=== PATIENT | female | born 1960 ===

== ENCOUNTER 2018-08-10 16:09 | Outpatient (REF) | payer MEDICAID, SELFPAY ==
[2018-08-10 22:11] LABS: Cholesterol 209 mg/dL (50-200); HDL Cholesterol 60 mg/dL (40-60); LDL CHOLESTEROL 124 mg/dL (<100); Triglyceride 80 mg/dL (30-150)
== END 2018-08-10 16:29 ==
LOC: NCHCN 16:09
PROVIDERS: PCP Family Medicine; Visit Provider Registered Nurse
DX: Z13.220 Encounter for screening for lipoid disorders (principal); Z00.00 Encounter for general adult medical examination without abnormal findings
CPT/HCPCS: 80061; 83721

== ENCOUNTER 2023-12-13 01:51 | Outpatient (CLI) | payer BC, SELFPAY ==
--- NOTE | 2023-12-13 | ETT_ITS ---
APPROVED REPORT Exam: Exercise Treadmill Patient Location: Out-Patient Room/Bed: Stress Nurse: Azalia Page RN Ordering Provider:SPENCER IVY, Contact Number: [phone] BMI: 18.53 Baseline Rhythm: Sinus Rhythm Indications: chest pain Medical History Medical History: skin cancer Cardiac Medications: aspirin, atorvastatin, metoprolol XL, nitroglycerin Allergies: penicillin Cardiac Risk Factors: family hx Previous Cardiac Procedures: none Pretest Chest Pain Characteristics: No chest pain Exercise History: Physically active Physical Disabilities: none Lung Sounds: Clear to auscultation Heart Sounds: Regular Stress Test Details Test: Exercise stress testing was performed using a Garo protocol. Rest Stress HR Resting HR Supine: 70 bpm Max Heart Rate (APMHR): 156 bpm Resting HR Standin bpm Target HR (85% APMHR): 133 bpm Max HR Achieved: 190 bpm % of APMHR: 122 Recovery HR: 88 bpm HR response to stress: Accelerated HR response to stress BP Resting BP Supine: 124/72 mmHg Resting BP Standin/78 mmHg Max BP: 160/78 mmHg Recovery BP: 126/78 mmHg BP response to stress: Normal blood pressure response to stress. ECG Resting ECG: Sinus Rhythm Ectopy: none Comment: minimal ST depression, <1mm Stress ECG: Sinus Tachycardia, ?SVT, ?aberrant rhythm ST Change: Horizontal ST depression, Downsloping ST depression Lead(s): diffuse Stage: 2, 3, recovery Maximum ST Deviation: 1-4 mm Arrhythmia: ?SVT, ?aberrant rhythm Recovery ECG: Sinus Rhythm Recovery ST Change: Downsloping ST depression, Horizontal ST depression Lead(s): diffuse Recovery ST Deviation: 1-4 mm Recovery Arrhythmia: None Comment: ST depression back to baseline at test end Clinical Reason for Termination: Target HR Achieved, arrhythmia Stress Symptoms: none Exercise duration: 08 min52 sec Highest Stage Reached: Stage 3: 3.4 mph at 14% grade. Exercise capacity: 10.16 METs Angina Score: None Sarkar Treadmill Score: 7.0 Rate Pressure Product: 81070 Stress ECG Conclusion 1. Resting electrocardiogram showed minor nondiagnostic ST abnormalities 2. Patient exercised on the Garo protocol and completed workload of 10.16 METS 3. Normal heart rate and blood pressure response to exercise. Patient had no symptoms to suggest ang barber 4. At peak exercise there was [address] depression in the inferior and anterolateral leads. Patient al so developed supraventricular tachycardia at peak exercise with heart rate of 190, more prominent ST depression. SVT was asymptomatic 5. Electrocardiographically the test was consistent with myocardial ischemia Sarkar Treadmill Score is 7.0 which is Low risk. Stress Test Summary STAGE Time (mins) Speed (mph) Grade (%) HR BP SpO2 SYMPTOMS METS Supine 70 124/72 Standing 83 126/78 1 3 1.7 10 101 138/70 96 4.5 2 6 2.5 12 122 148/64 7 3 9 3.4 14 167 10 1 min recovery 97 160/78 3 min recovery 86 142/76 6 min recovery 85 126/78 Patient noted to have minimal ST depressions at rest. During Stages 2 and 3, patient noted to have 1- 4mm ST depression horizontal and downsloping. At end of stage 3, patient's HR up to 190, ?SVT/aberran t rhythm. Discontinued test and patient assisted to stretcher, denied any symptoms. Rhythm returned t o sinus tachycardia. At recovery, patient noted to have 1-4mm ST depression horizontal and downslopin g. Heart rate quickly returned to baseline. Dr. Mahan notified and viewed EKGs, ok for patient to [facility]. ST depression back to baseline. Left ambulatory in no apparent distress.
== END 2023-12-13 02:11 ==
PROVIDERS: PCP Family Medicine; Visit Provider Family Medicine
DX: R07.9 Chest pain, unspecified (principal)
CPT/HCPCS: 93017

== ENCOUNTER 2025-02-12 14:07 | Observation (INO) | payer MEDICARE, SELFPAY ==
--- NOTE | 2025-02-12 14:00 | RT.EKG_ITS ---
APPROVED REPORT Exam: Resting ECG Reason for Exam: chest pain Patient Location: E HR:83 bpm ECG Measurements Heart Rate 83 AXIS LA 156 P 51 QRSd 78 QRS 49 QT 333 T -67 QTc 391 Conclusion Sinus rhythm...normal P axis, V-rate 60- 99 Consider anteroseptal infarct...Q >30mS, dimin R, V1-V2 Nonspecific repol abnormality, diffuse leads...ST dep, T flat/neg, ant/lat/inf No Occlusion GA
--- NOTE | 2025-02-12 14:09 | W.ED.GENAD ---
Discharge Plan Disposition Patient Disposition: Admit to [facility] Discharge Details Clinical Impression: Unstable angina Primary Care Provider: Sin Martinez ED Provider: Ash Trevino [facility] General Date/Time Provider Initiated Documentation: 02/12/25 14:09. [facility] Narrative: MDM This is an overall very well-appearing normothermic and not tachycardic 64-year-old female with concerning chest pain for which she received aspirin and will trial nitroglycerin in the setting of her ECG with ST segment depressions. No tearing quality to suggest aortic dissection so we will defer angiogram. No shortness of breath to suggest PE so I did not order D-dimer. No rash to chest to suggest zoster. No history of recent emesis to suggest increased risk for esophageal rupture. No fevers nor cough to suggest pneumonia. Patient is not a dialysis patient nor she tachycardic so my suspicion is low for tamponade. No significant pericardial effusion to suggest tamponade. Equal breath sounds and no trauma so doubt pneumothorax. 3:45 PM Reassuring initial troponin. Portable chest x-ray on my preliminary read with no acute cardiopulmonary process. Very mild hypokalemia. No LINDA. No LFT abnormalities. Normal reassuring magnesium. CBC lacks anemia thrombocytopenia and leukocytosis. Patient's chest pain had resolved and she did not receive nitroglycerin. 4:20 PM I spoke [place] Dave Rg [place] [facility] [place] advised [place] hospitalization with heparinization for unstable angina. He accepted the patient for transfer tomorrow on behalf of Dr. Morejon. He advised deferring clopidogrel load at this point in time but considering load if patient develop chest pain or made troponin. If patient developed chest pain he advised 600 mg clopidogrel load. I updated patient on plan of care. 4:50 PM I was in touch with Dr. Jean who graciously agreed to accept the patient for hospitalization.I signed patient out to Arabella. I have asked Arabella to engage with care management as patient has significant financial concerns over her hospitalization. Diagnostic interpretations performed by me: Per my independent interpretation chest x-ray shows: Per my independent interpretation EKG shows: Narrow complex sinus rhythm at a rate of 83. Normal axis. Intervals within normal limits. Diffuse ST segment depressions leads II, aVF, and V3. T wave flattening in aVL. No prior for comparison. ]Medications: Aspirin nitroglycerin HPI This is a patient with a history of chronic vomiting syndrome presenting with chest pain. The patient reports experiencing chest pain upon awakening at 8:00 AM. She describes the pain as a classic, intense discomfort radiating across her chest and back. She has had a similar episode approximately 1.5 years ago, during which she was advised to consult a athletic monitor but did not follow through due to relocation. She sought medical attention at [facility] 3 to 4 days after the initial episode, where she underwent a stress test that revealed abnormalities. A subsequent consultation in [place] resulted in a prescription for statins, which she chose not to take. She was also prescribed nitroglycerin tablets, one of which she took this morning with positive effect. Currently, she reports a persistent ache in the middle of her chest, extending under her armpit and around her left arm. She reports no recent trauma to her chest or falls but mentions owning a large dog that has caused significant injuries, including probable rib fractures, over the past 3 years. She reports no respiratory distress or shortness of breath. She has no history of thromboembolic events in her legs or lungs. She reports no rashes on her chest. She reports no dysuria. The patient has a diagnosis of chronic vomiting syndrome, with episodes occurring approximately 4 times a year, for which she takes Zofran as needed. 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 She recently recovered from a cold that resulted in an earache last week. Exam General: Well-appearing in no acute distress speaking in complete sentences. Head: Normocephalic, atraumatic. Eye: Extraocular eye movements intact. No conjunctival injection. No scleral icterus. Ear, nose, mouth, throat: Grossly normal inspection. Normal voice, handling secretions normally. Neck: Trachea midline. Cardiovascular: Well-perfused distal extremities. Regular rate and rhythm. Respiratory: Nonlabored respiration. Clear lungs bilaterally. Gastrointestinal: Nondistended abdomen. Musculoskeletal: No significant lower extremity pitting edema. Moving all 4 extremities spontaneously. Skin: Normal for age and race, grossly normal temperature and turgor. No acute rash. Neurologic: Alert and appropriate, no apparent acute deficits. Psychiatric: Mood and manner are appropriate. Grooming and personal hygiene are appropriate. Related Data Allergies Allergy/AdvReac Type Severity Reaction Status Date / Time Penicillins Allergy Severe Hives Unverified 02/12/25 14:15 PFSH All Active Problems (Updated 02/12/25 @ 16:37 by Ash Tervino MD) Unstable angina (Acute) Social History Smoking/Tobacco Use Status: Never Smoking risk assessment performed?: Yes Alcohol Intake: current Alcohol Intake frequency: 0-2 drinks per day Alcohol type: wine Substance use type: does not use Housing: house Do you feel safe at home: Yes Do you feel safe in your relationship?: Yes POCUS Exam (ED) Limited Cardiac Exam DATE OF EXAM: 02/12/25 TIME OF EXAM: 15:48 PROVIDER THAT PERFORMED THE STUDY: Ash Trevino IS THIS A REPEAT EXAM DURING THIS ENCOUNTER: no REASON FOR EXAM: Chest pain VISUALIZED STRUCTURES: Four Chambers, Left ventricle and LVOT VIEW OBTAINED: Apical 4-Chamber, Parasternal long-axis and Subxiphoid PERTINENT FINDINGS/IMPRESSION: No pericardial effusion and No RV dilation DIFFERENTIAL DIAGNOSES: Aortic outflow track less than 4 cm, good squeeze, RV less than LV, no significant pericardial effusion. Exam complete
[2025-02-12 14:14] VITALS: BP 158/96; PULSE 88; RESP 20; TEMP 36.6; O2SAT 98
[2025-02-12 14:42] LABS: Abs Immature Grans 0.01 10^3/uL (0.0-0.06); HCT 39.0 % (36.0-46.0); HGB 12.7 g/dL (11.2-15.7); Immature Grans % 0.2 %; MCH 31.0 pg (27.0-33.0); MCHC 32.6 % (32.0-36.0); MCV 95 fL (80-95); MPV 8.3 fL (8.0-11.0); Platelet Count 288 10^3/uL (130-400); RBC 4.10 10^6/uL (3.93-5.22); RDW 12.6 % (11.7-14.6); RDW-SD 44.1 fL; WBC 4.73 10^3/uL (4.4-10.8)
[2025-02-12 14:53] VITALS: RESP 16
[2025-02-12] MEDS: Normal Saline 500 ML IV (14:58)
[2025-02-12] MEDS: Aspirin 81 MG CHEW 324 MG CH (14:58)
[2025-02-12 15:04] LABS: ALT 55 U/L (14-59); AST 34 U/L (15-37); Albumin 4.2 g/dL (3.4-5.0); Alkaline Phosphatase 64 U/L (46-116); Anion Gap 9.8 mmol/L (3-11); BUN 12 mg/dL (7-18); Bilirubin, Total 0.4 mg/dL (0.2-1.0); CO2 28.2 mmol/L (21.0-32.0); Calcium 8.9 mg/dL (8.5-10.1); Chloride 105 mmol/L (98-107); Glucose 94 mg/dL (74-106); Magnesium 2.2 mg/dL (1.8-2.4); Potassium 3.4 mmol/L (3.5-5.1); Sodium 143 mmol/L (136-145); Total Protein 7.3 g/dL (6.4-8.2); Troponin I 4 ng/L (<or=51)
--- NOTE | 2025-02-12 15:43 | DI.RAD_ITS ---
Exam(s) XR PORTABLE CHEST AP EXAM: XR PORTABLE CHEST AP CLINICAL HISTORY: Chest pain TECHNIQUE: 2D digital imaging was performed of the chest. One image was obtained. An AP view was obtained. COMPARISON: No exams were available for comparison FINDINGS: MEDIASTINUM: Normal. HEART: Normal. PULMONARY VASCULATURE: Normal. LUNGS: Clear. PLEURAL SPACE: No pleural effusion or pneumothorax. BONE:Within normal limits for the patient's age. OTHER FINDINGS:Normal. IMPRESSION: No acute pulmonary findings. DATA REPOSITORY: RADIATION DOSE DELIVERED:
[2025-02-12 16:09] LABS: Troponin I 4 ng/L (<or=51)
--- NOTE | 2025-02-12 16:56 | HPE_ITS ---
Date of service: 02/12/25 Time of Service: 16:57 Assessment and Plan Assessment and plan (1) Unstable angina: Status: Acute Assessment and plan: discussed with cardiology and has been accepted in transfer. no bed available tonight so will be held on med/surg on telemetry accepting Dr Morejon continue heparin drip no plavix unless chest pain re-occurs received asa chest pain free. no acute ischemic EKG changes. cycle troponin which has been negative x2 NPO after midnight. discussed with DR Jean History of Present Illness History of Present Illness Chief Complaint: chest pain Narrative: This is a 64-year-old female past medical history of chest pain, abnormal stress test, hyperlipidemia not treated, who developed chest pain that did wake her up today at approximately 8 AM. She states the pain did radiate across her chest into her back. She reports she had a similar episode to this approximately a year and a half ago. She did undergo a stress test at that time which did show abnormalities. She did have subsequent follow-up with a provider who did prescribe her statin which she did not take. She was also given nitroglycerin prescription which she did take 1 nitroglycerin this morning that did resolve her chest pain. She denies any recent illness. She has had no shortness of breath edema nausea or vomiting. Her workup in the emergency department showed reassuring labs and a nonischemic EKG. Her case was discussed with cardiology at [facility] who did advise treatment for unstable angina with heparin drip. They did state to hold off on Plavix unless her chest pain reoccurs. She has been accepted in transfer under Dr. Morejon but will stay here until a bed becomes available. She has been hemodynamically stable and chest pain-free while being monitored in the emergency department. She is being admitted to the hospitalist services on telemetry Review of Systems All systems reviewed & are unremarkable except as noted in HPI and below PFSH All Active Problems (Updated 02/12/25 @ 16:37 by Ash Trevino MD) Unstable angina (Acute) Social History Smoking/Tobacco Use Status: Never Smoking risk assessment performed?: Yes Alcohol Intake: current Alcohol Intake frequency: 0-2 drinks per day Alcohol type: wine Substance use type: does not use Housing: house Do you feel safe at home: Yes Do you feel safe in your relationship?: Yes Meds Allergies and Home Medications Allergies Allergy/AdvReac Type Severity Reaction Status Date / Time Penicillins Allergy Severe Hives Unverified 02/12/25 14:15 Exam Narrative Exam Narrative: Well-appearing female stated age no acute distress head is atraumatic eyes nonicteric noninjected oral mucosas moist neck is supple full range of motion cardiovascular regular rate and rhythm no murmurs respirations even and unlabored abdomen benign moves all extremities no peripheral edema neurologic awake alert oriented no focal deficits psychiatric appropriate mood and affect Results Labs 02/12/25 14:31 02/12/25 14:31 Labs: Laboratory Results - last 24 hr 02/12/25 02/12/25 14:31 15:44 WBC 4.73 RBC 4.10 Hgb 12.7 Hct 39.0 MCV 95 MCH 31.0 MCHC 32.6 RDW 12.6 Plt Count 288 MPV 8.3 Immature Gran % 0.2 Neutrophils % 58.9 Lymphocytes % 30.2 Monocytes % 8.2 Eosinophils % 1.7 Basophils % 0.8 Nucleated RBC % 0.0 Absolute Neutrophils 2.78 Absolute Lymphocytes 1.43 Absolute Monocytes 0.39 Absolute Eosinophils 0.08 Absolute Basophils 0.04 Sodium 143 Potassium 3.4 L Chloride 105 Carbon Dioxide 28.2 Anion Gap 9.8 BUN 12 Creatinine 0.6 Est GFR (CKD-EPI 2020) 99.55 Glucose 94 Calcium 8.9 Magnesium 2.2 Total Bilirubin 0.4 AST 34 ALT 55 Alkaline Phosphatase 64 Troponin I 4 4 Total Protein 7.3 Albumin 4.2 Last Vital Signs Temp 36.6 C 02/12/25 14:14 Pulse 88 02/12/25 14:14 Resp 16 02/12/25 14:53 BP 158/96 H 02/12/25 14:14 Pulse Ox 98 02/12/25 14:14 PAWSS Have you Been Recently Intoxicated or Drunk Within the Last 30 days?: No Have you Ever Experienced Previous Episodes of Alcohol Withdrawal?: No Have you ever Experienced Withdrawal Seizures?: No Have you ever Experienced Delirium Tremens(DT)s?: No Have you ever undergone Alcohol Rehabilitation Treatment (i.e, inpt ot outpatient treatment programs)?: No Have you ever Experienced Blackouts?: No Have you ever Combined Alcohol with other Downers within the last 90 days?: No Positive Blood Alcohol level on Presentation? [PCS.BAL]: No Result: 0 Time Spent Time spent with Patient: 55-74 minutes Time was spent: preparing to see the patient(eg.review tests), obtaining and/or reviewing separately otained hiistory, ordering medications,tests, procedures, indepentently interpreting results and counseling the patient
[2025-02-12 17:36] LABS: Lab Add On Test DONE
[2025-02-12 17:50] LABS: Cholesterol 235 mg/dL (<200); HDL Cholesterol 66 mg/dL (>or=50)
[2025-02-12 17:51] LABS: Hemoglobin A1C 5.5 % (<5.7)
[2025-02-12] MEDS: Heparin in 0.45% NaCl 25,000 UNIT/250 ML BAG 6.5 UNIT IVINF (18:10)
[2025-02-12 18:21] LABS: PTT Activated 26.7 sec (20.6-30.2)
[2025-02-12 18:40] LABS: PTT Activated 25.4 sec (20.6-30.2)
[2025-02-12 19:15] VITALS: BP 148/92; PULSE 69; RESP 18; TEMP 36.9; O2SAT 100
--- NOTE | 2025-02-12 19:21 | W.PC.ACHO ---
Registration Status: ADM NATALY Primary Language: Preferred Language: Welsh ED Information & Data Chief Complaint Chest Pain 02/12/25 14:53 Chief Complaint Chest Pain 02/12/25 14:14 Triage Note pt was wokejn up by CP this 02/12/25 14:14 am, radiating to arm. no cardiac hx. Most Recent Vital Signs Temperature 36.9 C 02/12/25 19:15 Temperature Source Temporal Artery Scan 02/12/25 19:15 Pulse 69 02/12/25 19:15 Respiratory Rate 18 02/12/25 19:15 Respiratory Effort Normal, Non-Labored 02/12/25 14:53 Respiratory Depth Normal 02/12/25 14:53 Respiratory Pattern Normal 02/12/25 14:53 Blood Pressure 148/92 H 02/12/25 19:15 Blood Pressure Mean 110 02/12/25 19:15 Pulse Oximetry 100 02/12/25 19:15 Oxygen Delivery Method Room Air 02/12/25 19:15 Oxygen Flow Rate 0 02/12/25 19:15 Pain Level 2 02/12/25 14:14 Allergies Penicillins Allergy (Severe, Unverified 02/12/25 14:15) Hives Precautions Isolation Standard precaution 02/12/25 14:53 Active Medications Generic Name Dose Route Start Last Admin Trade Name Freq PRN Reason Stop Dose Admin Heparin Sodium/Sodium Chloride 25,000 unit in 250 mls @ 6.5 mls/hr 02/12/25 16:30 02/12/25 18:10 IVINF 650 units/hr INFUSION FARHAD 6.5 mls/hr Protocol Administration 650 UNITS/HR IV IV Catheter Type [Left Saline Lock Antecubital] IV Catheter Gauge [Left 18 Antecubital] Diagnostics 02/12/25 02/12/25 02/12/25 Range/Units Unknown 19:51 18:14 WBC (4.4-10.8) 10^3/uL RBC (3.93-5.22) 10^6/uL Hgb (11.2-15.7) g/dL Hct (36.0-46.0) % MCV (80-95) fL MCH (27.0-33.0) pg MCHC (32.0-36.0) % RDW (11.7-14.6) % Plt Count (130-400) 10^3/uL MPV (8.0-11.0) fL Immature Gran % % Neutrophils % % Lymphocytes % % Monocytes % % Eosinophils % % Basophils % % Nucleated RBC % (0.0-0.3) % Absolute Neutrophils (1.2-6.7) 10^3/uL Absolute Lymphocytes (1.2-3.4) 10^3/uL Absolute Monocytes (0.1-0.8) 10^3/uL Absolute Eosinophils (0.0-0.7) 10^3/uL Absolute Basophils (0.0-0.2) 10^3/uL APTT 25.4 (20.6-30.2) sec Sodium (136-145) mmol/L Potassium (3.5-5.1) mmol/L Chloride (98-107) mmol/L Carbon Dioxide (21.0-32.0) mmol/L Anion Gap (3-11) mmol/L BUN (7-18) mg/dL Creatinine (0.55-1.02) mg/dL Est GFR (CKD-EPI 2020) (mL/min/1.73m2) Glucose (74-106) mg/dL Hemoglobin A1c (<5.7) % Calcium (8.5-10.1) mg/dL Magnesium (1.8-2.4) mg/dL Total Bilirubin (0.2-1.0) mg/dL AST (15-37) U/L ALT (14-59) U/L Alkaline Phosphatase (46-116) U/L Troponin I Pending (<or=51) ng/L Total Protein (6.4-8.2) g/dL Albumin (3.4-5.0) g/dL Triglycerides (<150) mg/dL Total Cholesterol (<200) mg/dL LDL Cholesterol, Calc (<100) mg/dL HDL Cholesterol (>or=50) mg/dL B. divergens/MO-1 PCR Babesia duncani (PCR) Babesia microti DNA PCR Lyme Disease Antibody E.chaffeensis DNA (PCR) E.ewingii/canis DNA PCR E.muris eauclairensis (PCR) A. phagocytophilum (PCR) Blood B. miyamotoi (PCR) Add-On Test Request DONE 02/12/25 02/12/25 02/12/25 Range/Units 17:15 16:51 15:44 WBC (4.4-10.8) 10^3/uL RBC (3.93-5.22) 10^6/uL Hgb (11.2-15.7) g/dL Hct (36.0-46.0) % MCV (80-95) fL MCH (27.0-33.0) pg MCHC (32.0-36.0) % RDW (11.7-14.6) % Plt Count (130-400) 10^3/uL MPV (8.0-11.0) fL Immature Gran % % Neutrophils % % Lymphocytes % % Monocytes % % Eosinophils % % Basophils % % Nucleated RBC % (0.0-0.3) % Absolute Neutrophils (1.2-6.7) 10^3/uL Absolute Lymphocytes (1.2-3.4) 10^3/uL Absolute Monocytes (0.1-0.8) 10^3/uL Absolute Eosinophils (0.0-0.7) 10^3/uL Absolute Basophils (0.0-0.2) 10^3/uL APTT (20.6-30.2) sec Sodium (136-145) mmol/L Potassium (3.5-5.1) mmol/L Chloride (98-107) mmol/L Carbon Dioxide (21.0-32.0) mmol/L Anion Gap (3-11) mmol/L BUN (7-18) mg/dL Creatinine (0.55-1.02) mg/dL Est GFR (CKD-EPI 2020) (mL/min/1.73m2) Glucose (74-106) mg/dL Hemoglobin A1c (<5.7) % Calcium (8.5-10.1) mg/dL Magnesium (1.8-2.4) mg/dL Total Bilirubin (0.2-1.0) mg/dL AST (15-37) U/L ALT (14-59) U/L Alkaline Phosphatase (46-116) U/L Troponin I Pending Pending 4 (<or=51) ng/L Total Protein (6.4-8.2) g/dL Albumin (3.4-5.0) g/dL Triglycerides (<150) mg/dL Total Cholesterol (<200) mg/dL LDL Cholesterol, Calc (<100) mg/dL HDL Cholesterol (>or=50) mg/dL B. divergens/MO-1 PCR Babesia duncani (PCR) Babesia microti DNA PCR Lyme Disease Antibody E.chaffeensis DNA (PCR) E.ewingii/canis DNA PCR E.muris eauclairensis (PCR) A. phagocytophilum (PCR) Blood B. miyamotoi (PCR) Add-On Test Request 02/12/25 Range/Units 14:31 WBC 4.73 (4.4-10.8) 10^3/uL RBC 4.10 (3.93-5.22) 10^6/uL Hgb 12.7 (11.2-15.7) g/dL Hct 39.0 (36.0-46.0) % MCV 95 (80-95) fL MCH 31.0 (27.0-33.0) pg MCHC 32.6 (32.0-36.0) % RDW 12.6 (11.7-14.6) % Plt Count 288 (130-400) 10^3/uL MPV 8.3 (8.0-11.0) fL Immature Gran % 0.2 % Neutrophils % 58.9 % Lymphocytes % 30.2 % Monocytes % 8.2 % Eosinophils % 1.7 % Basophils % 0.8 % Nucleated RBC % 0.0 (0.0-0.3) % Absolute Neutrophils 2.78 (1.2-6.7) 10^3/uL Absolute Lymphocytes 1.43 (1.2-3.4) 10^3/uL Absolute Monocytes 0.39 (0.1-0.8) 10^3/uL Absolute Eosinophils 0.08 (0.0-0.7) 10^3/uL Absolute Basophils 0.04 (0.0-0.2) 10^3/uL APTT 26.7 (20.6-30.2) sec Sodium 143 (136-145) mmol/L Potassium 3.4 L (3.5-5.1) mmol/L Chloride 105 (98-107) mmol/L Carbon Dioxide 28.2 (21.0-32.0) mmol/L Anion Gap 9.8 (3-11) mmol/L BUN 12 (7-18) mg/dL Creatinine 0.6 (0.55-1.02) mg/dL Est GFR (CKD-EPI 2020) 99.55 (mL/min/1.73m2) Glucose 94 (74-106) mg/dL Hemoglobin A1c 5.5 (<5.7) % Calcium 8.9 (8.5-10.1) mg/dL Magnesium 2.2 (1.8-2.4) mg/dL Total Bilirubin 0.4 (0.2-1.0) mg/dL AST 34 (15-37) U/L ALT 55 (14-59) U/L Alkaline Phosphatase 64 (46-116) U/L Troponin I 4 (<or=51) ng/L Total Protein 7.3 (6.4-8.2) g/dL Albumin 4.2 (3.4-5.0) g/dL Triglycerides 119 (<150) mg/dL Total Cholesterol 235 H (<200) mg/dL LDL Cholesterol, Calc 146 H (<100) mg/dL HDL Cholesterol 66 (>or=50) mg/dL B. divergens/MO-1 PCR Pending Babesia duncani (PCR) Pending Babesia microti DNA PCR Pending Lyme Disease Antibody Pending E.chaffeensis DNA (PCR) Pending E.ewingii/canis DNA PCR Pending E.muris eauclairensis (PCR) Pending A. phagocytophilum (PCR) Pending Blood B. miyamotoi (PCR) Pending Add-On Test Request Intake and Output - 24 Hour Total 02/12/25 14:07 thru 02/12/25 14:58 Intake Total 10 Balance 10 Weight 50.802 kg Intake: IV 10 Falls Risk Assessment History of Falls No History 02/12/25 14:53 Fall Total Score 0 02/12/25 14:53 Level of Risk Standard/Low Risk 02/12/25 14:53 Problems (Updated 02/12/25 @ 16:37 by Ash Trevino MD) Unstable angina (Acute) v v v v v v v v v Sending and/or Receiving Nurses: Please use comment section below to note any information pertinent to the patient hand-off not included above. Information / Comments: pt arrived to the unit @1905. Heparin infusion running at 650ml/hr. on RA. no complaints of chest pain. Report received from: Rain in ED @3650.
[2025-02-12 20:33] LABS: Troponin I 5 ng/L (<or=51)
--- NOTE | 2025-02-12 21:25 | W.PM.DS.N ---
Date of service: 02/12/25 Time of Service: 21:25 DS: Diagnosis Discharge Diagnosis (1) Unstable angina: Status: Acute Discharge Plan Disposition Patient Disposition: Transfer-Acute Inpatient Care Specific Acute Inpt Facility: [facility] Condition: Stable Discharge Details Reason For Visit: chest pain, unstable angina Admit Date/Time: 02/12/25 16:56 Admit Provider: Rodolfo Jean Attending Provider: Rodolfo Jean Primary Care Provider: Sin Martinez Hospital Course Hospital Course: PT was accepted to [facility] at 2120 This is a 64-year-old female past medical history of chest pain, abnormal stress test, hyperlipidemia not treated, who developed chest pain that did wake her up today at approximately 8 AM. She states the pain did radiate across her chest into her back. She reports she had a similar episode to this approximately a year and a half ago. She did undergo a stress test at that time which did show abnormalities. She did have subsequent follow-up with a provider who did prescribe her statin which she did not take. She was also given nitroglycerin prescription which she did take 1 nitroglycerin this morning that did resolve her chest pain. She denies any recent illness. She has had no shortness of breath edema nausea or vomiting. Her workup in the emergency department showed reassuring labs and a nonischemic EKG. Her case was discussed with cardiology at [facility] who did advise treatment for unstable angina with heparin drip. They did state to hold off on Plavix unless her chest pain reoccurs. She has been accepted in transfer under Dr. Morejon but will stay here until a bed becomes available. She has been hemodynamically stable and chest pain-free while being monitored in the emergency department. She is being admitted to the hospitalist services on telemetry Assessment and plan (1) Unstable angina: Status: Acute Assessment and plan: discussed with cardiology and has been accepted in transfer. no bed available tonight so will be held on med/surg on telemetry accepting Dr Morejon continue heparin drip no plavix unless chest pain re-occurs received asa chest pain free. no acute ischemic EKG changes. cycle troponin which has been negative x2 NPO after midnight. Discharge Instructions Activity:: bed rest Equipment/Supplies:: No Equipment Needed Diet:: As Tolerated Discharge Orders Discharge Orders: Discharge Order (Routine); Ordered 02/12/25 Ordered By: Rafita Edwards DS: Summary Time Spent with Patient providing and/or coordinating discharge services: Less than 30 minutes Status at Discharge Functional status at discharge: bed bound Overall status at discharge: patient is not back to baseline Mental Status: mental status grossly normal Speech and Movement: speech and movement normal Mood: congruent mood Affect: normal affect Exam Narrative Exam Narrative: heent ncat mmm eomi perrla neck no lad cv rrr no mrg lungs ctab no amu [id number] Psych Mental Status: mental status grossly normal Speech and Movement: speech and movement normal Mood: congruent mood Affect: normal affect DS: Data Vitals/I&O Vitals and I&O: Vital Signs Temperature 36.9 C 02/12/25 19:15 Temperature Source Temporal Artery Scan 02/12/25 19:15 Pulse 69 02/12/25 19:15 Respiratory Rate 18 02/12/25 19:15 Respiratory Effort Normal, Non-Labored 02/12/25 14:53 Respiratory Depth Normal 02/12/25 14:53 Respiratory Pattern Normal 02/12/25 14:53 Blood Pressure 148/92 H 02/12/25 19:15 Blood Pressure Mean 110 02/12/25 19:15 Pulse Oximetry 100 02/12/25 19:15 Oxygen Delivery Method Room Air 02/12/25 19:15 Oxygen Flow Rate 0 02/12/25 19:15 Pain Level 2 02/12/25 14:14 Intake & Output 02/11/25 02/12/25 02/12/25 23:59 11:59 23:59 Intake Total Balance Weight 52.6 kg Intake: IV Data Completed and Pending Pending Labs at Discharge: 02/12/25 02/12/25 02/12/25 14:31 15:44 16:51 WBC 4.73 RBC 4.10 Hgb 12.7 Hct 39.0 MCV 95 MCH 31.0 MCHC 32.6 RDW 12.6 Plt Count 288 MPV 8.3 Immature Gran % 0.2 Neutrophils % 58.9 Lymphocytes % 30.2 Monocytes % 8.2 Eosinophils % 1.7 Basophils % 0.8 Nucleated RBC % 0.0 Absolute Neutrophils 2.78 Absolute Lymphocytes 1.43 Absolute Monocytes 0.39 Absolute Eosinophils 0.08 Absolute Basophils 0.04 APTT 26.7 Sodium 143 Potassium 3.4 L Chloride 105 Carbon Dioxide 28.2 Anion Gap 9.8 BUN 12 Creatinine 0.6 Est GFR (CKD-EPI 2020) 99.55 Glucose 94 Hemoglobin A1c 5.5 Calcium 8.9 Magnesium 2.2 Total Bilirubin 0.4 AST 34 ALT 55 Alkaline Phosphatase 64 Troponin I 4 4 Cancelled Total Protein 7.3 Albumin 4.2 Triglycerides 119 Total Cholesterol 235 H LDL Cholesterol, Calc 146 H HDL Cholesterol 66 B. divergens/MO-1 PCR Pending Babesia duncani (PCR) Pending Babesia microti DNA PCR Pending Lyme Disease Antibody Pending E.chaffeensis DNA (PCR) Pending E.ewingii/canis DNA PCR Pending E.muris eauclairensis (PCR) Pending A. phagocytophilum (PCR) Pending Blood B. miyamotoi (PCR) Pending Add-On Test Request 02/12/25 02/12/25 02/12/25 17:15 18:14 19:45 WBC RBC Hgb Hct MCV MCH MCHC RDW Plt Count MPV Immature Gran % Neutrophils % Lymphocytes % Monocytes % Eosinophils % Basophils % Nucleated RBC % Absolute Neutrophils Absolute Lymphocytes Absolute Monocytes Absolute Eosinophils Absolute Basophils APTT 25.4 Sodium Potassium Chloride Carbon Dioxide Anion Gap BUN Creatinine Est GFR (CKD-EPI 2020) Glucose Hemoglobin A1c Calcium Magnesium Total Bilirubin AST ALT Alkaline Phosphatase Troponin I Cancelled 5 Total Protein Albumin Triglycerides Total Cholesterol LDL Cholesterol, Calc HDL Cholesterol B. divergens/MO-1 PCR Babesia duncani (PCR) Babesia microti DNA PCR Lyme Disease Antibody E.chaffeensis DNA (PCR) E.ewingii/canis DNA PCR E.muris eauclairensis (PCR) A. phagocytophilum (PCR) Blood B. miyamotoi (PCR) Add-On Test Request 02/12/25 02/12/25 19:51 Unknown WBC RBC Hgb Hct MCV MCH MCHC RDW Plt Count MPV Immature Gran % Neutrophils % Lymphocytes % Monocytes % Eosinophils % Basophils % Nucleated RBC % Absolute Neutrophils Absolute Lymphocytes Absolute Monocytes Absolute Eosinophils Absolute Basophils APTT Sodium Potassium Chloride Carbon Dioxide Anion Gap BUN Creatinine Est GFR (CKD-EPI 2020) Glucose Hemoglobin A1c Calcium Magnesium Total Bilirubin AST ALT Alkaline Phosphatase Troponin I Cancelled Total Protein Albumin Triglycerides Total Cholesterol LDL Cholesterol, Calc HDL Cholesterol B. divergens/MO-1 PCR Babesia duncani (PCR) Babesia microti DNA PCR Lyme Disease Antibody E.chaffeensis DNA (PCR) E.ewingii/canis DNA PCR E.muris eauclairensis (PCR) A. phagocytophilum (PCR) Blood B. miyamotoi (PCR) Add-On Test Request DONE [facility] All Active Problems (Updated 02/12/25 @ 16:37 by Ash Trevino MD) Unstable angina (Acute) Social History Smoking/Tobacco Use Status: Never Smoking risk assessment performed?: Yes Alcohol Intake: current Alcohol Intake frequency: 0-2 drinks per day Alcohol type: wine Substance use type: does not use Housing: house Do you feel safe at home: Yes Do you feel safe in your relationship?: Yes Time Spent with Patient Time Spent with Patient: <45 minutes Time was spent: preparing to see the patient(eg.review tests), obtaining and/or reviewing separately otained hiistory, ordering medications,tests, procedures, referring, communicating with other health care connector, indepentently interpreting results, counseling the patient and care coordination
[2025-02-14 11:46] LABS: Lyme Ab w Rflx to Lyme Confirm Negative (Negative)
[2025-02-16 01:21] LABS: B. miyamotoi PCR Negative (Negative); Babesia divergens/MO-1 Negative (Negative); Ehrlichia muris eauclairensis Negative (Negative)
--- NOTE | 2025-02-19 10:23 | NUR.NOTE ---
Access patient chart to determine the date that patient was here and left for [facility]. Nursing Note:
== END 2025-02-12 21:50 | disposition short-term general hospital (02) ==
LOC: ER 16:39 → MS 19:08
PROVIDERS: Emergency Medicine; Hospitalist; Nurse Practitioner Acute Care; Admitting Provider Family Medicine; Emergency Provider Emergency Medicine; Visit Provider Family Medicine
DX: I20.0 Unstable angina (principal); R94.39 Abnormal result of other cardiovascular function study; E78.5 Hyperlipidemia, unspecified
CPT/HCPCS: 00123; 80048; 80053; 80061; 87798; 93005; 93308; 96361; 96365; 99285; 71045; 83036; 83735; 84484; 85025; 85730; 86618; 93010; 99222; G0378; J1644

== ENCOUNTER 2025-03-23 13:03 | Outpatient (REF) | payer MEDICARE, SELFPAY ==
[2025-03-23 17:57] LABS: HCT 40.2 % (36.0-46.0); HGB 13.1 g/dL (11.2-15.7); MCH 31.7 pg (27.0-33.0); MCHC 32.6 % (32.0-36.0); MCV 97 fL (80-95); MPV 9.0 fL (8.0-11.0); Platelet Count 328 10^3/uL (130-400); RBC 4.13 10^6/uL (3.93-5.22); RDW 12.8 % (11.7-14.6); RDW-SD 46.2 fL; WBC 4.33 10^3/uL (4.4-10.8)
[2025-03-23 18:18] LABS: Hemoglobin A1C 5.4 % (<5.7)
[2025-03-23 18:21] LABS: ALT 40 U/L (10-49); AST 34 U/L (<34); Albumin 4.6 g/dL (3.2-5.0); Alkaline Phosphatase 70 U/L (46-116); Anion Gap 9.2 mmol/L (3-11); BUN 19 mg/dL (9-23); Bilirubin, Total 0.50 mg/dL (0.2-1.2); CO2 25.8 mmol/L (20.0-31.0); Calcium 9.3 mg/dL (8.3-10.6); Chloride 109 mmol/L (98-107); Cholesterol 153 mg/dL (<200); Glucose 93 mg/dL (74-106); HDL Cholesterol 64 mg/dL (>40); Potassium 4.1 mmol/L (3.5-5.1); Sodium 144 mmol/L (136-145); Total Protein 6.7 g/dL (5.7-8.2)
== END 2025-03-23 13:04 | disposition home or self-care (01) ==
LOC: NCHCN 13:03
DX: Z00.00 Encounter for general adult medical examination without abnormal findings (principal)
CPT/HCPCS: 80053; 80061; 85027; 83036